=== PATIENT | male | born 1995 | race Caucasian/White ===

== ENCOUNTER 2023-11-16 12:33 | Emergency (ER) | payer MEDICAID ==
[~2023-11-16] VITALS: Ht 175.3 cm; Wt 82.0 kg
[2023-11-16 12:38] VITALS: O2SAT 99
[2023-11-16] MEDS: BACITRACIN ZINC OINT UDPKT TOP ONE (16:23)
[2023-11-16] MEDS: KETOROLAC 30MG/ML VIAL IV ONE (16:23)
[2023-11-16] MEDS: BACITRACIN ZINC OINT UDPKT TOP NR (16:23)
[2023-11-16] MEDS: KETOROLAC 60MG/2ML VIAL IM ONE ×2 (16:59→17:00)
[2023-11-16 17:05] VITALS: BP 124/87; PULSE 58; RESP 18; TEMP 98.5
== END 2023-11-16 17:11 | disposition home or self-care (01) ==
LOC: ER 13:04
DX: S01.81XA Laceration without foreign body of other part of head, initial encounter (principal); S80.12XA Contusion of left lower leg, initial encounter; S80.11XA Contusion of right lower leg, initial encounter; S80.212A Abrasion, left knee, initial encounter; W22.09XA Striking against other stationary object, initial encounter; X58.XXXA Exposure to other specified factors, initial encounter; Y92.89 Other specified places as the place of occurrence of the external cause; Y99.8 Other external cause status
CPT/HCPCS: 99283; 12013; 96372; J1885; 12002

== ENCOUNTER 2023-11-26 13:46 | Emergency (ER) | payer MEDICAID ==
[~2023-11-26] VITALS: Ht 175.3 cm; Wt 79.0 kg
[2023-11-26 13:53] VITALS: O2SAT 98
[2023-11-26 18:05] VITALS: BP 116/69; PULSE 69; RESP 20; TEMP 98.4
== END 2023-11-26 18:04 | disposition home or self-care (01) ==
LOC: ER 13:46
DX: S01.01XD Laceration without foreign body of scalp, subsequent encounter (principal); Z48.02 Encounter for removal of sutures; X58.XXXD Exposure to other specified factors, subsequent encounter
CPT/HCPCS: 99282